=== PATIENT | male | born 2005 | race Two or more races ===

== ENCOUNTER 2024-02-15 17:04 | Emergency (ER) | payer MEDICAID, SELFPAY ==
--- NOTE | 2024-02-15 | XR_ITS ---
Examination: CT abdomen with intravenous contrast CT pelvis with intravenous contrast 2-D coronal reconstructions 2-D sagittal reconstructions Date and time of exam:February 16, 2024 at 0143 hrs. Comparison January 28, 2017 Indications: Onset right lower abdominal pain beginning 2 days ago. CTDI: vol (mGy) 19.3 DLP: (mGycm) 1153 Technique: Multiple axial sections of the abdomen and pelvis have been obtained. 64 slice high-resolution scanner used. 3 mm axial sections have been obtained, post intravenous injection 60 cc [id number] 2-D sagittal, coronal reconstructions obtained. Low dose protocols were performed. One or more of the following dose reduction techniques were used; automated exposure control, adjustment of the mA and/or KV according to patient size, use of iterative reconstruction technique. Findings: Hepatomegaly 23 cm with diffuse fatty infiltration throughout the liver Splenomegaly AP dimension 13.7 cm No gallstones No extrahepatic biliary tract dilatation Negative for peripancreatic edema Normal adrenal glands No renal or ureteral calculi Aorta normal size 7 mm fat-containing umbilical hernia Normal appendix coronal image 90 No bowel obstruction No diverticulitis Normal prostate Contracted urinary bladder The osseous structures are intact Impression: Hepatosplenomegaly, clinical correlation advised No renal or ureteral calculi, no hydronephrosis 7 mm fat-containing umbilical hernia Normal appendix
[2024-02-15 17:08] VITALS: BP 149/92; PULSE 84; RESP 16; TEMP 36.6; O2SAT 97; BMI 46.0
--- NOTE | 2024-02-15 17:32 | PD.EDRME ---
Rapid Medical Screening Exam RME Arrival date/time: 02/15/24 17:04 19-year-old male presents emergency department complaining of right lower quadrant pain since this morning. Patient reports seen primary care provider and was advised to go to emergency department for evaluation. Chief Complaint: Abdominal Pain Time Seen by Provider: 02/15/24 17:30 Vital signs: Vital Signs Temperature 97.9 F 02/15/24 17:08 Pulse Rate 84 02/15/24 17:08 Respiratory Rate 16 02/15/24 17:08 Blood Pressure 149/92 H 02/15/24 17:08 Pulse Oximetry (%) 97 02/15/24 17:08 Oxygen Delivery Method Room Air 02/15/24 17:08 Vital signs reviewed by provider: Yes
[2024-02-15 18:07] LABS: Collection Type, Urine Clean Catch; RBC,Urine 0 /hpf (0-3); WBC,Urine 0 /hpf (0-5)
[2024-02-15 18:21] LABS: Basophils % (Auto) 0 % (0-2.5); Eosinophils # (Auto) 0.3 Thou/mm3 (0.0-0.5); Eosinophils % (Auto) 3 % (0-10); Hematocrit 45.5 % (41.0-53.0); Hemoglobin 15.5 g/dL (13.5-16.0); Immature Granulocytes % (Auto) 0 % (0-0); Immature Granulocytes Auto 0.04 Thou/mm3 (0.00-0.00); Lymphocytes # (Auto) 1.6 Thou/mm3 (1.0-4.8); Lymphocytes % (Auto) 18 % (10-50); Mean Corpuscular HGB Conc 34.1 g/dl (31.0-37.0); Mean Corpuscular Hemoglobin 27.7 pg (25.0-35.0); Mean Corpuscular Volume 81 fL (80-100); Monocytes # (Auto) 0.8 Thou/mm3 (0.0-0.8); Monocytes % (Auto) 9 % (0-12); Neutrophils # (Auto) 6.2 Thou/mm3 (1.8-7.7); Neutrophils % (Auto) 70 % (37-80); Nucleated Red Blood Cell % 0 /100 WBC (0); Platelet Count 360 Thou/mm3 (140-440); White Blood Count 8.9 Thou/mm3 (3.8-10.6)
[2024-02-15 18:37] LABS: Alanine Aminotransferase 55 U/L (10-49); Albumin, Serum 4.8 gm/dL (3.5-5.0); Albumin/Globulin Ratio 1.7 (1.2-2.2); Alkaline Phosphatase 103 U/L (46-116); Anion Gap 4 (7-16); Aspartate Amino Transferase 35 U/L (0-34); BUN/Creatinine Ratio 12 Ratio (12-20); Bilirubin,Total 0.4 mg/dL (0.3-1.2); Blood Urea Nitrogen 11 mg/dL (9-23); Calcium 9.6 mg/dL (8.3-10.6); Calcium (Corrected) 9.6 mg/dL (8.5-10.1); Carbon Dioxide 29.1 mMol/L (20.0-31.0); Chloride 105 mMol/L (98-107); Creatinine (Component) 0.9 mg/dL (0.6-1.3); Estimated Creatinine Clearance 170.8 mL/min (>60); Globulin 2.8 gm/dL (2.3-3.5); Glucose 126 mg/dL (74-106); Lipase 39 U/L (12-53); Osmolality,Calculated 277 (275-295); Potassium 3.9 mMol/L (3.4-5.1); Sodium 138 mMol/L (136-145); Total Protein 7.6 gm/dL (5.7-8.2); eGFR > 60 See Note
[2024-02-15 18:48] LABS: Bilirubin,Urine Negative (Negative); Blood,Urine Negative (Negative); Clarity,Urine Clear (Clear/Hazy); Color,Urine Yellow (Lt Yel-Yel); Culture Indicated,Urine Not Indicated; Glucose, Urine Trace (Negative); Ketones,Urine Negative (Negative); Leukocyte Esterase,Urine Negative (Negative); Nitrite,Urine Negative (Negative); Protein,Urine Trace (Neg - Trace); Specific Gravity,Urine 1.035 (1.001-1.035); Squamous Epithelial Cell,Urine < 1 /hpf (0-5); Urobilinogen,Urine Negative mg/dL (0.0-1.0)
[2024-02-16 00:54] VITALS: BP 159/87; PULSE 75; O2SAT 99
[2024-02-16] MEDS: MORPHINE SULF INJ 10 MG/ML VIAL 2 MG IVP (01:30)
--- NOTE | 2024-02-16 02:48 | PRELIM_ITS ---
CT scan of the abdomen and pelvis with intravenous contrast (axial sections with sagittal and coronal reformats) February 16, 2024 0143 hoursClinical History: Abd pain, r/o appyComparison: None.Findings :The lung bases are clear.The gallbladder, pancreas, spleen, kidneys and adrenals are unremarkable.He patomegaly.No evidence of bowel obstruction. The appendix is within normal limits.There is no mesente santana or retroperitoneal adenopathy.The urinary bladder is nondistended, limited evaluation. There is n o free fluid or free air.The osseous structures are unremarkable.Impression:Hepatomegaly. Report Elec tronically Signed By: Bhupendra Bauer 02/16/2024 2:47:50 AM [EST]
--- NOTE | 2024-02-16 03:17 | PD.EDABDPN ---
ED Abdominal Pain RME/HPI General Chief Complaint: Abdominal Pain Stated complaint: NEEDS CT OF ABD FOR RLQ PAIN Time seen by provider: 02/15/24 17:30 Arrival date/time: 02/15/24 17:04 RME / HPI RME / HPI narrative: 02/15/24 17:04 19-year-old male presents emergency department complaining of right lower quadrant pain since this morning. Patient reports seen primary care provider and was advised to go to emergency department for evaluation. The patient presented to the emergency department complaining of right lower quadrant abdominal pain since more than 24 hours ago. He described the pain as 8/10. No fever. Nausea but no vomiting. No diarrhea. No constipation. No dysuria. Last meal was yesterday. Past medical history is COVID-19. No smoking. No alcohol. No drug use. Related Data Previous Rx's ?Medication ?Instructions ?Recorded azithromycin 250 mg tablet See Rx Instructions PO .COMPLEX #6 02/19/21 (Zithromax Z-Gio) tabs Allergies Allergy/AdvReac Type Severity Reaction Status Date / Time amoxicillin Allergy Mild RASH Verified 02/15/24 17:06 Penicillins Allergy Mild RASH Verified 02/15/24 17:06 Review of Systems Review of Systems Narrative Review of Systems: REVIEW OF SYSTEM: GEN:? negative except mentioned in HPI HEENT:? negative except mentioned in HPI NECK:? negative except mentioned in HPI PULM:? negative except mentioned in HPI CARD:? negative except mentioned in HPI GI:? negative except mentioned in HPI MUSCULO/SKET: negative except mentioned in HPI SKIN:? negative except mentioned in HPI NEURO:? negative except mentioned in HPI PSYCH:? negative except mentioned in HPI Past Medical History Past Medical History CARDIAC: Negative Cardiac Disorders or Congestive Heart Failure RESPIRATORY: Positive Asthma (as a child); Negative Chronic Obstructive Pulmonary Disease (COPD) GENITOURINARY: Negative Renal Disease ENDOCRINE: Negative Diabetes Mellitus Type 1 or Diabetes Mellitus Type 2 HEMATOLOGIC: Negative Sickle Cell Disease Surgical History SURGICAL: Positive Tonsillectomy Social History SMOKING STATUS: Never smoker ED Exam Narrative Physical exam: Aaox4. No acute distress O2 saturation is normal Heent:? perra. Eomi. No icteric. Neck: full rom.? No mass.? No jvd.? No lymphadenopathy Lungs:? clear, full, equal Heart:? s1s2.? Rrr.? No murmur, gallop or rub. Abd: soft, nondistended, moderate discomfort in the right lower quadrant., no mass, no rebound or guarding, no flank tender.? No incarcerated? hernia Ext:? full rom.? No deformity.? Normal csm. Neuro:?? intact cn2 to 12.? No facial droop.? No slurred speech.? No focal deficit.? Moves all 4ext Skin:? no rash.? No cellulitis.? No lesion.? No laceration Psychiatrical: no suicidal.? No homicidal.? No delusion.? No hallucinating Course Quality Measures none Orders Category Date Time Status CT Screening NOW Care 02/15/24 17:[address] abdomen pelvis w con Urgent Exams 02/15/24 Taken CBC Stat Lab 02/15/24 18:05 Completed CMP [Comprehensive Metabolic Panel] Stat Lab 02/15/24 18:05 Completed Lipase Stat Lab 02/15/24 18:05 Completed Urinalysis, C/S if Indicated Stat Lab 02/15/24 17:54 Completed Morphine Inj Med 02/15/24 23:47 Discontinued 2 mg IVP X1 ONE Vital Signs Vital signs: Vital Signs Temperature 97.9 F 02/15/24 17:08 Pulse Rate 84 02/15/24 17:08 Respiratory Rate 16 02/15/24 17:08 Blood Pressure 149/92 H 02/15/24 17:08 Pulse Oximetry (%) 97 02/15/24 17:08 Oxygen Delivery Method Room Air 02/15/24 17:08 Abdominal Pain MDM MDM Narrative MDM Narrative:: CBC negative. CMP and lipase negative. UA negative. [facility] [address] [place] [address] [employer] Preliminary Report Draft Patient: KINJAL JOSE. Record#: [id number] Birthdate: 2005 Age/Sex: 19 / M Location: [facility] Attending Dr: Ordering Physician: Date of Service: Procedure(s): Accession Number(s): cc: ~ CT scan of the abdomen and pelvis with intravenous contrast (axial sections with sagittal and coronal reformats) February 16, 2024 0143 hours Clinical History: Abd pain, r/o appy Comparison: None. Findings: The lung bases are clear. The gallbladder, pancreas, spleen, kidneys and adrenals are unremarkable. Hepatomegaly. No evidence of bowel obstruction. The appendix is within normal limits. There is no mesenteric or retroperitoneal adenopathy. The urinary bladder is nondistended, limited evaluation. There is no free fluid or free air. The osseous structures are unremarkable. Impression: Hepatomegaly. Report Electronically Signed By: Bhupendra Bauer 02/16/2024 2:47:50 AM [EST] Dictated By: Signed By: DD/ 9 TD/TT: 02/16/24246 Security Compliance Engineer: CT abdomen and pelvic as reviewed by and interpreted by me: Liver spleen pancreas kidneys unremarkable. No pericecal stranding. No free air. No free fluid. No bowel obstruction. Therefore there is no surgical abdomen at this time. The patient will be discharged home. With the instruction to follow-up with PMD or return the emergency department in 24 hours for recheck. In the meantime clear liquid diet for now. Patient data External records reviewed:: [facility] previous records Clinical information provided by:: patient Social determinants that could affect healthcare access:: none Patient has the following chronic illnesses:: Obesity How is presenting disease/condition affected by chronic disease/condition?: uneffected by Evaluation data The following diagnostics were reviewed and interpreted by me:: lab results and radiology exam(s) Lab and/or radiology exams considered but not ordered:: None Interpretation Summary: See MDM Medications / Prescriptions Medications or Prescriptions considered but not ordered:: None Medication administrations:: Medication Administration History Discontinued Medications Morphine Sulfate (Morphine Sulf Inj 10 Mg/Ml Vial) 2 mg IVP X1 ONE Stop: 02/15/24 23:48 Last Admin: 02/16/24 01:30 Dose: 2 mg Documented By: RH See above Consultations Consultation(s) initiated? (list below): No Diagnosis Differential diagnosis abdominal pain: abdominal pain, acute appendicitis, calculus of kidney and constipation Most likely diagnosis given after review of the tests above:: Abdominal pain, to be rechecked in 24 hours Admission Indicated Admission indicated?: not indicated Admission Request Was there a request for admission?: No Disposition Plan Disposition Plan: Discharge Discharge Attestation Discharge Attestation: The patient and all family members were given an opportunity to ask questions and understood the discharge instructions. Discharge instructions specifically effects, indications for sooner follow up or return to the emergency department, and the expected course of current diagnosis. Patient condition: Stable Discharge Plan Plan Patient Disposition: HOME (Self Care) Disposition Comment: Stable for DC home Prescriptions/Referrals Prescriptions/Med Rec: No Action azithromycin [Zithromax Z-Gio] 250 mg tablet See Rx Instructions .ROUTE .COMPLEX Qty: 6 0RF Rx Instructions: For 250 mg dose pack: take 500 mg today (day 1), then 250 mg for 4 days (days 2-5) Referrals: No Primary/Family,Physician [Primary Care Provider] - In 1 week Problem List Clinical Impression: Abdominal pain Patient/Caregiver Discharge Instructions Education Materials: Abdominal Pain Additional Instructions: Liquid diet for now. Follow-up with your medical doctor or return tomorrow for recheck..... To make sure that you do not develop an early appendicitis. Print Language: Belarusian Stand Alone Forms: [employer] Award Info., Patient Portal Info Letter
[2024-02-16 03:28] VITALS: BP 137/69; PULSE 81; RESP 18; TEMP 37; O2SAT 96
== END 2024-02-16 04:05 | disposition home or self-care (01) ==
PROVIDERS: Emergency Provider Emergency Medicine
DX: R10.31 Right lower quadrant pain (principal); R16.0 Hepatomegaly, not elsewhere classified
CPT/HCPCS: 36415; 74177; 80053; 81001; 83690; 85025; 96374; 99285; A4649; J2270; Q9967

== ENCOUNTER → 2024-04-06 | Outpatient (CLI) | payer OTHER, SELFPAY ==
--- NOTE | 2024-04-06 08:30 | XR_ITS ---
Exam: MRI knee with intravenous contrast, left Date and time of exam: November 05, 2023 0911 hours INDICATIONS: Injury to the knee this week, diagnosis sprain of the anterior cruciate ligament Technique: Multiple axial, coronal, and sagittal sections on the knee have been obtained. T2-Weighted sagittal, fat-suppressed images, TR 3,500, TE 62, T2 weighted coronal fat-saturated images, TR 3,500, TE 62 Proton density sagittal sections, TR 1800, TE 31. T-1 weighted coronal images, TR 524, TE 13.0 Images obtained post intravenous administration 20 cc gadolinium Findings: Medial meniscus anterior horn intact. Medial meniscus, body oblique linear tear communicating superior articular surface. Posterior horn medial meniscus vertical tear communicating superior articular surface outer one half posterior horn and sagittal images 6. Lateral meniscus anterior horn is intact Lateral meniscus, body is intact Posterior horn lateral meniscus suspicious for horizontal linear tear communicating inferior articular surface near the inner margin Anterior cruciate ligament high-grade sprain. Posterior cruciate ligament appears intact. Knee effusion is small. Quadriceps and patellar tendons appear intact. There is no evidence of tendinosis. Inflammatory change or fracture of Hoffa's fat pad is not seen. Medial patellar facet demonstrates no thinning. Lateral patellar facet cartilage demonstrates no thinning. Trochlear cartilage demonstrates no thinning. Marrow signal adequate. Medial collateral ligament appears intact. No meniscocapsular separation is seen. Illiotibial band and fibular collateral ligament are intact. Biceps femoris tendons appear intact. Medial femoral condylar articular cartilage demonstrates no thinning. Lateral femoral condylar articular cartilage demonstratesno thinning. Tibial plateau cartilage demonstrates no thinning. Impression: High-grade sprain anterior cruciate ligament Medial lateral meniscus tears as above
== END | disposition home or self-care (01) ==
PROVIDERS: Referring Provider Family Medicine; Visit Provider Family Medicine
DX: S83.512A Sprain of anterior cruciate ligament of left knee, initial encounter (principal); S83.282A Other tear of lateral meniscus, current injury, left knee, initial encounter; X58.XXXA Exposure to other specified factors, initial encounter
CPT/HCPCS: 73722